=== PATIENT | female | born 1970 | race African-American/Black ===

== ENCOUNTER → 2017-01-08 | Outpatient (CLI) | payer BC ==
[~2017-01-08] MED LIST: AZITHROMYCIN 2250 MG PO; BENZONATATE100 MG PO; DUONEB 2.5-0.5 M3 ML INH; KEFLEX500 M1 PO; LAMISIL250 MG PO; PROAIR HFA8.5 GM INH
== END ==
LOC: RAD 11:42
DX: J18.9 Pneumonia, unspecified organism (principal); J98.11 Atelectasis

== ENCOUNTER 2017-11-28 00:48 | Emergency (ER) | payer BC ==
[~2017-11-28] VITALS: Ht 167.6 cm; Wt 106.6 kg
--- NOTE | ~2017-11-28 | EKG ---
[address] [address] ELECTROCARDIOGRAM REPORT Name: JUSTIN CANTRELL Room #: [facility]#: [id number] Admission: 11/28/17 Attend Phys: Discharge: 11/28/17 Date of : 68 Report #: [id number] THIS REPORT FOR: //name// [facility] ED Test Date: 2017-11-28 Test Time: 01:32:56 Pat Name: JUSTIN CANTRELL Department: Room: Gender: F Interactive Web Developer: SALINAS : 1970 Requested By: Enoc Castillo Order Number: [id number] MD: Andrea Toure Measurements Intervals [place] Rate: 66 P: 22 MN: 136 QRS: 6 QRSD: 109 T: -12 QT: 442 QTc: 464 Interpretive Statements Sinus rhythm Borderline T abnormalities, inferior leads Compared to ECG 11/10/2006 00:21:45 Sinus bradycardia no longer present Possible ischemia no longer present T-wave abnormality still present Electronically Signed On 11-28-2017 13:29:10 CDT by Andrea Toure [email or web address] <ELECTRONICALLY SIGNED> By: Andrea Toure MD 11/28/17 1329 [id number] [id number] Andrea Toure MD /EPI
[2017-11-28] MEDS ORDERED: PROAIR HFA8.5 GM INH (01:46)
[2017-11-28] MEDS ORDERED: PREDNISONE 20 M20 MG PO (01:46)
== END 2017-11-28 01:56 | disposition home or self-care (01) ==
LOC: ER 00:48
DX: R06.02 Shortness of breath (principal); J44.9 Chronic obstructive pulmonary disease, unspecified; Z88.2 Allergy status to sulfonamides

== ENCOUNTER 2018-05-30 07:42 | Emergency (ER) | payer BC ==
[~2018-05-30] VITALS: Ht 167.6 cm; Wt 107.0 kg
[~2018-05-30 07:42] MED LIST changes: +PREDNISONE 20 M20 MG PO
[2018-05-30] MEDS ORDERED: BREO ELLIPTA 11 EACH PO (08:05)
[2018-05-30] MEDS ORDERED: FLUTICASONE PRO16 GM NASAL (08:07)
[2018-05-30] MEDS ORDERED: NEURONTIN 300300 M1 PO (08:08)
[2018-05-30 08:47] LABS: ABSOLUTE NEUTROPHILS 4.2 thou/uL (1.4-8.2); BASOPHILS 1.2 % (0.0-2.0); EOSINOPHILS 0.1 % (0.0-3.0); HEMATOCRIT 38.1 % (37.0-47.0); HEMOGLOBIN 12.9 gm/dL (12.0-15.0); LYMPHOCYTES 38.2 % (24.0-44.0); MCH 30.9 pg (26.0-34.0); MCHC 33.9 g/dL (28.0-37.0); MCV 91.2 fL (80.0-100.0); MONOCYTES 7.9 % (1.0-8.0); PLATELET COUNT 216 thou/uL (150-400); POLYS 52.6 % (36.0-66.0); RBC 4.17 mil/uL (4.20-5.00); RDW 14.8 % (10.5-14.5); WBC 7.9 thou/uL (4.0-11.0)
--- NOTE | 2018-05-30 08:50 | EKG ---
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 : 1970 Requested By: Bailey Dowell Order Number: [id number] MD: Chilango Hurtado Measurements Intervals [place] Rate: 61 P: 35 [place]: 140 QRS: 1 QRSD: 93 T: -13 QT: 423 QTc: 426 Interpretive Statements Sinus rhythm RSR' in V1 or V2, probably normal variant Borderline T abnormalities, inferior leads Compared to ECG 11/28/2017 01:32:56 No significant change was found Electronically Signed On 05-30-2018 8:50:08 CDT by Chilango Hurtado [email or web address] ��������������������������������������������� <ELECTRONICALLY SIGNED> ���������������������������������������� By: Chilango Hurtado MD, [facility] ��������������������������������������������� 05/30/18 0850 4 4 Chilango Hurtado MD, [facility] /EPI
[2018-05-30 08:51] LABS: ANION GAP 10 mmol/L (7-16); BUN 11 mg/dL (7-18); CALCIUM 9.9 mg/dL (8.5-10.1); CHLORIDE 104 mmol/L (98-107); CO2 25 mmol/L (21-32); CREATININE 0.9 mg/dL (0.6-1.0); GLUCOSE 107 mg/dL (74-106); SODIUM 139 mmol/L (136-145)
[2018-05-30 09:01] LABS: MAGNESIUM 1.8 mg/dL (1.8-2.4); TROPONIN-I <0.06 ng/mL (<0.06)
[2018-05-30] MEDS ORDERED: MOBIC15 MG PO (10:33)
[2018-05-30] MEDS ORDERED: VALIUM5 MG PO (10:33)
[2018-05-30 10:53] VITALS: BP 131/78
== END 2018-05-30 11:00 | disposition home or self-care (01) ==
LOC: ER 07:42
PROVIDERS: Emergency Medicine
DX: M62.838 Other muscle spasm (principal); R06.00 Dyspnea, unspecified; G47.9 Sleep disorder, unspecified; J45.909 Unspecified asthma, uncomplicated; Z88.2 Allergy status to sulfonamides

== ENCOUNTER 2018-06-29 18:57 | Emergency (ER) | payer BC ==
[~2018-06-29] VITALS: Ht 167.6 cm; Wt 108.4 kg
[~2018-06-29 18:57] MED LIST changes: +BREO ELLIPTA 11 EACH PO; +FLUTICASONE PRO16 GM NASAL; +MOBIC15 MG PO; +NEURONTIN 300300 M1 PO; +VALIUM5 MG PO
[2018-06-29] MEDS ORDERED: ZOFRAN ODT4 MG PO (20:34)
[2018-06-29 20:46] VITALS: BP 141/74
== END 2018-06-29 20:44 | disposition home or self-care (01) ==
LOC: ER 18:57
DX: G89.18 Other acute postprocedural pain (principal); M25.511 Pain in right shoulder; J45.909 Unspecified asthma, uncomplicated; Z88.2 Allergy status to sulfonamides

== ENCOUNTER 2019-01-25 08:04 | Emergency (ER) | payer BC ==
[~2019-01-25] VITALS: Ht 172.7 cm; Wt 95.3 kg
[~2019-01-25 08:04] MED LIST changes: +ZOFRAN ODT4 MG PO
[2019-01-25] MEDS ORDERED: DESYREL150 MG PO (08:18)
[2019-01-25] MEDS ORDERED: TRAZODONE 150150 M1 PO (08:18)
[2019-01-25 08:21] LABS: URINE BILIRUBIN NEGATIVE (Negative); URINE BLOOD NEGATIVE (Negative); URINE CLARITY CLEAR; URINE COLOR YELLOW; URINE GLUCOSE-RANDOM* NEGATIVE (Negative); URINE KETONES NEGATIVE (Negative); URINE LEUKOCYTES-REFLEX NEGATIVE (Negative); URINE NITRITE-REFLEX NEGATIVE (Negative); URINE PROTEIN (DIPSTICK) NEGATIVE (Negative); URINE SPECIFIC GRAVITY 1.015 (1.005-1.035)
[2019-01-25 08:33] LABS: HEMATOCRIT 41.1 % (37.0-47.0); HEMOGLOBIN 13.6 gm/dL (12.0-15.0); MCH 30.6 pg (26.0-34.0); MCV 92.6 fL (80.0-100.0); PLATELET COUNT 240 thou/uL (150-400); RBC 4.44 mil/uL (4.20-5.00); WBC 12.1 thou/uL (4.0-11.0)
[2019-01-25 08:46] LABS: CALCIUM 8.9 mg/dL (8.5-10.1); POTASSIUM 3.6 mmol/L (3.5-5.1)
[2019-01-25 08:52] LABS: DIRECT BILIRUBIN 0.2 mg/dL (<0.1-0.3); TOTAL BILIRUBIN 0.7 mg/dL (<0.1-1.0); TOTAL PROTEIN 6.6 g/dL (6.4-8.2)
[2019-01-25 09:21] LABS: ABSOLUTE NEUTROPHILS 10.4 thou/uL (1.4-8.2); PLATELET ESTIMATE NORMAL
[2019-01-25] MEDS ORDERED: ZOFRAN ODT4 MG PO (11:32)
[2019-01-25] MEDS ORDERED: ZPAK PO (11:32)
[2019-01-25] MEDS ORDERED: PRILOSEC OTC20 MG PO (11:32)
[2019-01-25 11:34] VITALS: BP 125/72
== END 2019-01-25 11:34 | disposition home or self-care (01) ==
LOC: ER 08:04
PROVIDERS: Emergency Medicine
DX: K92.0 Hematemesis (principal); J06.9 Acute upper respiratory infection, unspecified; R10.12 Left upper quadrant pain; J45.909 Unspecified asthma, uncomplicated; Z88.2 Allergy status to sulfonamides

== ENCOUNTER → 2019-04-21 | Outpatient (CLI) | payer BC ==
[~2019-04-21] MED LIST changes: +DESYREL150 MG PO; +PRILOSEC OTC20 MG PO; +TRAZODONE 150150 M1 PO; +ZPAK PO
== END ==
LOC: RAD 11:09
DX: M19.042 Primary osteoarthritis, left hand (principal); M25.742 Osteophyte, left hand

== ENCOUNTER → 2020-05-09 | Outpatient (CLI) | payer BC | LOC: RAD 09:24 | PROVIDERS: ATTEND Pediatrics | DX: J45.30 Mild persistent asthma, uncomplicated (principal); J18.9 Pneumonia, unspecified organism ==